=== PATIENT | female | born 2000 | race Caucasian/White ===

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

== ENCOUNTER 2019-03-03 10:46 | Emergency (ER) | payer BC ==
[2019-03-03 10:49] VITALS: O2SAT 99
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
[2019-03-03] MEDS ORDERED: MOTRIN 400 MG PO ONE (11:12)
[2019-03-03] MEDS ORDERED: MOTRIN 400 MG ONE (11:15)
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
[2019-03-03 12:21] VITALS: BP 116/83; PULSE 73
== END 2019-03-03 13:04 | disposition home or self-care (01) ==
LOC: ED 10:46
DX: S16.1XXA Strain of muscle, fascia and tendon at neck level, initial encounter (principal); S10.93XA Contusion of unspecified part of neck, initial encounter; V89.2XXA Person injured in unspecified motor-vehicle accident, traffic, initial encounter; Y92.411 Interstate highway as the place of occurrence of the external cause
CPT/HCPCS: 70450; 71046; 72125; 99284; A9270-GY

== ENCOUNTER 2022-07-04 13:01 | Emergency (ER) | payer BC ==
--- NOTE | 2022-07-04 13:04 | ERPHSYRPT ---
- History of Present Illness Time Seen by Provider: 07/04/22 13:03 Historian: patient Exam Limitations: no limitations Physician History: This is a 22-year-old white female patient of Dr. Wilkinson who presents to the emergency department today with substernal central chest discomfort. It is nonradiating. Patient states that she drank several beers and several shots beginning at 3 PM yesterday. This evening and again this morning she had several episodes of vomiting. There was some blood noted in her vomitus. She was also having some chest pain as described above. She has nausea at this time. She currently has no abdominal pain. She has no complaints of diarrhea. She has had no flulike symptoms other than the vomiting. She has no cardiac history. Timing/Duration: today Activities at Onset: other (Vomiting several times) Quality: tightness (Muscular and discomfort) Location: substernal, central Chest Pain Radiation: no radiation Severity of Pain-Max: mild Severity of Pain-Current: mild Modifying Factors: Improves With: nothing Associated Symptoms: nausea, vomiting, No cough Prior Chest Pain/Cardiac Workup: no prior chest pain, no prior cardiac workup Nitro Today/Relief: no nitro taken today Aspirin Treatment Today: no aspirin today Allergies/Adverse Reactions: gluten Allergy (Verified 07/04/22 13:09) Home Medications: Magnesium Oxide [Magnesium] 1 tab PO DAILY 07/04/22 [History] Hx Tetanus, Diphtheria Vaccination/Date Given: Yes Hx Influenza Vaccination/Date Given: No Hx Pneumococcal Vaccination/Date Given: No Travel Risk - International Travel Have you traveled outside of the country in past 3 weeks: No - Coronavirus Screening Are you exhibiting any of the following symptoms?: No Close contact with a COVID-19 positive Pt in past 14-21 Days: No - Review of Systems Constitutional: No Symptoms Eyes: No Symptoms Ears, Nose, & Throat: No Symptoms Respiratory: No Symptoms Cardiac: Chest Pain Abdominal/Gastrointestinal: Nausea, Vomiting, Hematemesis (Small flecks of blood after several episodes of vomiting), Appetite Changes, No Diarrhea Genitourinary Symptoms: No Symptoms Musculoskeletal: No Symptoms Skin: No Symptoms Neurological: No Symptoms Psychological: No Symptoms Endocrine: No Symptoms Hematologic/Lymphatic: No Symptoms Immunological/Allergic: No Symptoms All Other Systems: Reviewed and Negative - Past Medical History Pertinent Past Medical History: No Neurological History: No Pertinent History ENT History: No Pertinent History Cardiac History: No Pertinent History Respiratory History: No Pertinent History Endocrine Medical History: No Pertinent History Musculoskeletal History: No Pertinent History GI Medical History: No Pertinent History History: No Pertinent History Psycho-Social History: No Pertinent History Female Reproductive Disorders: No Pertinent History Other Medical History: gluten sensitivity - Past Surgical History Past Surgical History: No Neuro Surgical History: No Pertinent History Cardiac: No Pertinent History Respiratory: No Pertinent History Gastrointestinal: No Pertinent History Genitourinary: No Pertinent History Musculoskeletal: No Pertinent History Female Surgical History: No Pertinent History - Social History Smoking Status: Never smoker Exposure to second hand smoke: No Drug Use: none Patient Lives Alone: No - Nursing Vital Signs Nursing Vital Signs: Initial Vital Signs Temperature 98.1 F 07/04/22 13:17 Pulse Rate 93 H 07/04/22 13:17 Respiratory Rate 18 07/04/22 13:17 Blood Pressure 125/89 07/04/22 13:17 O2 Sat by Pulse Oximetry 100 07/04/22 13:17 Pain Scale Pain Intensity 4 - Physical Exam General Appearance: no apparent distress, alert, anxiety, thin Eye Exam: PERRL/EOMI, eyes nml inspection Ears, Nose, Throat Exam: normal ENT inspection, moist mucous membranes Neck Exam: normal inspection, non-tender, supple, full range of motion Respiratory Exam: normal breath sounds, chest tenderness (Mild muscular generalized), lungs clear, airway intact, No respiratory distress Cardiovascular Exam: regular rate/rhythm, normal heart sounds, normal peripheral pulses Gastrointestinal/Abdomen Exam: soft, normal bowel sounds, No tenderness Pelvic Exam: not done Rectal Exam: not done Back Exam: normal inspection Extremity Exam: normal inspection, normal range of motion, pelvis stable Neurologic Exam: alert, oriented x 3, cooperative, synthetic soil blocks pulper II-XII nml as tested, normal mood/affect, nml cerebellar function, nml station & gait, sensation nml Skin Exam: normal color, warm, dry Lymphatic Exam: No adenopathy SpO2 Interpretation: normal O2 Delivery: Room Air - Course Nursing assessment & vital signs reviewed: Yes EKG Interpreted by Me: RATE (84), Sinus Rhythm, NORMAL AXIS, NORMAL INTERVALS, NORMAL QRS, NORMAL ST-T, Other (No acute ischemic changes on today's twelve-lead EKG.) Ordered Tests: Active Orders 24 hr Category Date Time Status Clean Catch Urine Specimen STAT Care 07/04/22 13:24 Active EKG-ER Only STAT Care 07/04/22 13:24 Active IV Insertion STAT Care 07/04/22 13:24 Active AMYLASE Stat Lab 07/04/22 13:24 Completed CBC W DIFF Stat Lab 07/04/22 13:24 Completed CMP Stat Lab 07/04/22 13:24 Completed ETHYL ALCOHOL Stat Lab 07/04/22 13:24 Completed HCG QUALITATIVE, URINE Stat Lab 07/04/22 13:27 Completed LIPASE Stat Lab 07/04/22 13:24 Completed Lactic Acid Stat Lab 07/04/22 13:24 Completed MAG [MAGNESIUM] Stat Lab 07/04/22 13:24 Received TROPONIN Q4H Lab 07/04/22 17:30 Ordered TROPONIN Q4H Lab 07/04/22 21:30 Ordered TROPONIN Stat Lab 07/04/22 13:24 Completed UA W/RFX UR CULTURE Stat Lab 07/04/22 13:27 Completed Urine Triage Profile Stat Lab 07/04/22 13:27 Completed Medication Summary Generic Name Dose Route Start Last Admin Trade Name Freq PRN Reason Stop Dose Admin Sodium Chloride 1,000 mls @ 999 mls/hr 07/04/22 13:24 07/04/22 13:32 Sodium Chloride 0.9% 1000 Ml IV 07/04/22 14:24 999 mls/hr .Q1H1M STA Administration Sodium Chloride 1,000 mls @ 999 mls/hr 07/04/22 14:02 Sodium Chloride 0.9% 1000 Ml IV 07/04/22 15:02 .Q1H1M STA Discontinued Medications Generic Name Dose Route Start Last Admin Trade Name Freq PRN Reason Stop Dose Admin Sodium Chloride Confirm 07/04/22 13:30 Sodium Chloride 0.9% 1000 Ml Administered 07/04/22 13:31 Dose 1,000 mls @ ud .ROUTE .STK-MED ONE Ondansetron HCl 4 mg 07/04/22 13:24 07/04/22 13:34 Ondansetron Hcl 4 Mg/2 Ml Vial IV 07/04/22 13:25 4 mg STAT ONE Administration Ondansetron HCl Confirm 07/04/22 13:30 Ondansetron Hcl 4 Mg/2 Ml Vial Administered 07/04/22 13:31 Dose 4 mg .ROUTE .STK-MED ONE Pantoprazole Sodium 40 mg 07/04/22 13:24 07/04/22 13:35 Pantoprazole 40 Mg Vial IV 07/04/22 13:25 40 mg STAT ONE Administration Pantoprazole Sodium Confirm 07/04/22 13:30 Pantoprazole 40 Mg Vial Administered 07/04/22 13:31 Dose 40 mg IV .STK-MED ONE Lab/Rad Data: Laboratory Result Diagrams 07/04/22 13:24 07/04/22 13:24 Laboratory Results 07/04/22 07/04/22 07/04/22 Range/Units 13:27 13:27 13:27 WBC (4.0-10.5) x10^3/uL RBC (4.1-5.4) x10^6/uL Hgb (12.0-16.0) g/dL Hct (35-47) % MCV (78-100) fL MCH (26-32) pg MCHC (32-36) g/dL RDW (11.5-14.0) % Plt Count (150-450) x10^3/uL MPV (7.5-11.0) fL Gran % (36.0-66.0) % Immature Gran % (Auto) (0.00-0.4) % Nucleat RBC Rel Count (0.00-0.1) % Eos # (Auto) (0-0.5) x10^3/uL Immature Gran # (Auto) (0.00-0.03) x10^3u/L Absolute Lymphs (auto) (1.0-4.6) x10^3/uL Absolute Monos (auto) (0.0-1.3) x10^3/uL Absolute Nucleated RBC (0.00-0.01) x10^3u/L Lymphocytes % (24.0-44.0) % Monocytes % (0.0-12.0) % Eosinophils % (0.00-5.0) % Basophils % (0.0-0.4) % Absolute Granulocytes (1.4-6.9) x10^3/uL Basophils # (0-0.4) x10^3/uL Sodium (137-145) mmol/L Potassium (3.5-5.1) mmol/L Chloride (98-107) mmol/L Carbon Dioxide (22-30) mmol/L Anion Gap (5-15) MEQ/L BUN (7-17) mg/dL Creatinine (0.52-1.04) mg/dL Estimated GFR ML/MIN Glucose (74-106) mg/dL Lactic Acid (0.4-2.0) Calcium (8.4-10.2) mg/dL Total Bilirubin (0.2-1.3) mg/dL AST (14-36) U/L ALT (0-35) U/L Alkaline Phosphatase (38-126) U/L Troponin I (0.000-0.034) ng/mL Serum Total Protein (6.3-8.2) g/dL Albumin (3.5-5.0) g/dL Amylase (30-110) U/L Lipase (23-300) U/L Urine Color Yellow (Yellow) Urine Appearance Clear (Clear) Urine pH >=9.0 A (4.6-8.0) Ur Specific [place] 1.020 (1.005-1.030) Urine Protein 30 (Negative) Urine Glucose (UA) Negative (Negative) mg/dL Urine Ketones Negative (Negative) Urine Blood Negative (Negative) Urine Nitrite Negative (Negative) Urine Bilirubin Negative (Negative) Urine Urobilinogen 1.0 A (0.2) mg/dL Ur Leukocyte Esterase Negative (Negative) U Hyaline Cast (Auto) NONE SEEN (0-2) /LPF Urine Microscopic RBC 0-2 (0-5) /HPF Urine Microscopic WBC 0-2 (0-5) /HPF Ur Epithelial Cells Rare (None Seen) /HPF Urine Bacteria None Seen (None Seen) /HPF Urine Culture Reflexed NO (NO) Urine HCG, Qual NEGATIVE (NEGATIVE) Urine Opiates Level NEGATIVE (NEGATIVE) Ur Methadone NEGATIVE (NEGATIVE) Urine Barbiturates NEGATIVE (NEGATIVE) Ur Phencyclidine (PCP) NEGATIVE (NEGATIVE) Urine Amphetamine NEGATIVE (NEGATIVE) U Benzodiazepine Level NEGATIVE (NEGATIVE) Urine Cocaine NEGATIVE (NEGATIVE) Urine Marijuana (THC) NEGATIVE (NEGATIVE) Ethyl Alcohol (0-10) mg/dL 07/04/22 07/04/22 07/04/22 Range/Units 13:24 13:24 13:24 WBC 15.5 H (4.0-10.5) x10^3/uL RBC 4.98 (4.1-5.4) x10^6/uL Hgb 14.6 (12.0-16.0) g/dL Hct 44.3 (35-47) % MCV 89.0 (78-100) fL MCH 29.3 (26-32) pg MCHC 33.0 (32-36) g/dL RDW 13.0 (11.5-14.0) % Plt Count 319 (150-450) x10^3/uL MPV 10.8 (7.5-11.0) fL Gran % 84.7 H (36.0-66.0) % Immature Gran % (Auto) 0.4 (0.00-0.4) % Nucleat RBC Rel Count 0.0 (0.00-0.1) % Eos # (Auto) 0.02 (0-0.5) x10^3/uL Immature Gran # (Auto) 0.06 H (0.00-0.03) x10^3u/L Absolute Lymphs (auto) 1.50 (1.0-4.6) x10^3/uL Absolute Monos (auto) 0.72 (0.0-1.3) x10^3/uL Absolute Nucleated RBC 0.00 (0.00-0.01) x10^3u/L Lymphocytes % 9.7 L (24.0-44.0) % Monocytes % 4.6 (0.0-12.0) % Eosinophils % 0.1 (0.00-5.0) % Basophils % 0.5 (0.0-0.4) % Absolute Granulocytes 13.16 H (1.4-6.9) x10^3/uL Basophils # 0.07 (0-0.4) x10^3/uL Sodium 140 (137-145) mmol/L Potassium 3.9 (3.5-5.1) mmol/L Chloride 103 (98-107) mmol/L Carbon Dioxide 26 (22-30) mmol/L Anion Gap 14.6 (5-15) MEQ/L BUN 12 (7-17) mg/dL Creatinine 0.54 (0.52-1.04) mg/dL Estimated GFR > 60.0 ML/MIN Glucose 93 (74-106) mg/dL Lactic Acid 1.2 (0.4-2.0) Calcium 9.6 (8.4-10.2) mg/dL Total Bilirubin 0.70 (0.2-1.3) mg/dL AST 38 H (14-36) U/L ALT 25 (0-35) U/L Alkaline Phosphatase 110 (38-126) U/L Troponin I < 0.012 (0.000-0.034) ng/mL Serum Total Protein 8.8 H (6.3-8.2) g/dL Albumin 4.8 (3.5-5.0) g/dL Amylase 86 (30-110) U/L Lipase 78 (23-300) U/L Urine Color (Yellow) Urine Appearance (Clear) Urine pH (4.6-8.0) Ur Specific [place] (1.005-1.030) Urine Protein (Negative) Urine Glucose (UA) (Negative) mg/dL Urine Ketones (Negative) Urine Blood (Negative) Urine Nitrite (Negative) Urine Bilirubin (Negative) Urine Urobilinogen (0.2) mg/dL Ur Leukocyte Esterase (Negative) U Hyaline Cast (Auto) (0-2) /LPF Urine Microscopic RBC (0-5) /HPF Urine Microscopic WBC (0-5) /HPF Ur Epithelial Cells (None Seen) /HPF Urine Bacteria (None Seen) /HPF Urine Culture Reflexed (NO) Urine HCG, Qual (NEGATIVE) Urine Opiates Level (NEGATIVE) Ur Methadone (NEGATIVE) Urine Barbiturates (NEGATIVE) Ur Phencyclidine (PCP) (NEGATIVE) Urine Amphetamine (NEGATIVE) U Benzodiazepine Level (NEGATIVE) Urine Cocaine (NEGATIVE) Urine Marijuana (THC) (NEGATIVE) Ethyl Alcohol < 10 (0-10) mg/dL - Progress Progress: improved, re-examined Air Movement: good Progress Note: 07/04/22 14:09 This patient's medical issue is 1 of moderate complexity. The level of complexity and the work-up performed is based on review of the patient's past medical history, review of the patient's medication list, review of the patient's drug allergy list, history of present illness and physical findings on examination. Work-up includes a CBC, CMP, amylase, lipase, test, urinalysis, urine drug screen and magnesium level. In addition we performed a twelve-lead EKG and a troponin level. The patient's lab work results were reviewed by me. There is no evidence of any acute, emergent medical issues. The patient's symptoms is likely to the multiple vomiting episodes that she had between last night and this morning. Patient was given 2 L of intravenous normal saline, Zofran 4 mg, and Protonix 40 mg. Symptomatically, the patient has improved. When she has completed her second liter of normal saline, the patient will be discharged home with a prescription of Zofran ODT and Pepcid 20 mg. Blood Culture(s) Obtained: No Antibiotics given: No Counseled pt/family regarding: lab results, diagnosis, need for follow-up Medical Desision Making - Independent Historian Additional History obtained from: Mother (Provided independent additional history from mom) - Diagnostic Testing Diagnostic test were ordered, analyzed, and reviewed by me: Yes - Risk of complications The pt has a mod risk of morbidity or mortality based on: Need for prescription drug management - Departure Departure Disposition: Home Clinical Impression: Vomiting, Gastritis Condition: Stable Critical Care Time: No Referrals: MILTON WILKINSON MD [Primary Care Provider] - Follow up/PCP as directed Additional Instructions: Drink plenty of clear liquids before advancing your diet. Avoid fatty greasy spicy foods. Take your medication as prescribed. Follow-up with your primary care provider for further evaluation and management in the next 5 to 7 days. Prescriptions: Ondansetron ODT 4 MG [Zofran Odt 4 mg] 4 mg PO Q6H PRN PRN #10 tablet PRN Reason: Vomiting Famotidine 20 mg [Pepcid 20 MG] 20 mg PO DAILY #10 tablet
[2022-07-04 13:24] VITALS: O2SAT 100
[2022-07-04] MEDS ORDERED: Zofran 4 MG/2 ML VIAL IV ONE (13:24)
[2022-07-04] MEDS ORDERED: PROTONIX 40 MG IV IV ONE ×2 (13:24→13:30)
[2022-07-04] MEDS ORDERED: Sodium Chloride 0.9% 1000 ML 1,000 ML IV STA ×2 (13:24→14:02)
[2022-07-04] MEDS ORDERED: Zofran 4 MG/2 ML VIAL ONE (13:30)
[2022-07-04] MEDS ORDERED: Sodium Chloride 0.9% 1000 ML 1,000 ML ONE ×2 (13:30→14:26)
[2022-07-04 13:41] LABS: HCG URINE TEST NEGATIVE (NEGATIVE)
[2022-07-04 13:44] LABS: Absolute Neutrophil Ct (ANC) 13.16 x10^3/uL (1.4-6.9); BASOPHIL % 0.5 % (0.0-0.4); Basophil (Absolute #) 0.07 x10^3/uL (0-0.4); Eosinophil % 0.1 % (0.00-5.0); Eosinophil (Absolute #) 0.02 x10^3/uL (0-0.5); Hematocrit 44.3 % (35-47); Hemoglobin 14.6 g/dL (12.0-16.0); IMMATURE GRAN # 0.06 x10^3u/L (0.00-0.03); IMMATURE GRAN % 0.4 % (0.00-0.4); Lymphocytes % 9.7 % (24.0-44.0); Mean Corpuscular Hemoglobin 29.3 pg (26-32); Mean Platelet Volume 10.8 fL (7.5-11.0); Monocyte (Absolute #) 0.72 x10^3/uL (0.0-1.3); Monocytes % 4.6 % (0.0-12.0); Neutrophil % 84.7 % (36.0-66.0); Platelet Count 319 x10^3/uL (150-450); Red Blood Count 4.98 x10^6/uL (4.1-5.4); White Blood Count 15.5 x10^3/uL (4.0-10.5)
[2022-07-04 13:45] LABS: Appearance Clear (Clear); Bacteria None Seen /HPF (None Seen); Bilirubin Negative (Negative); Blood Negative (Negative); Epithelial Cells Rare /HPF (None Seen); Glucose, Urine Negative (Negative); Hyaline Casts NONE SEEN /LPF (0-2); Ketones Negative (Negative); Leukocyte Esterase Negative (Negative); Nitrite Negative (Negative); Ph >=9.0 (4.6-8.0); Protein,Urine Dip 30 (Negative); RBC 0-2 /HPF (0-5); WBC 0-2 /HPF (0-5)
[2022-07-04 13:49] LABS: ALBUMIN 4.8 g/dL (3.5-5.0); ALKALINE PHOSPHATASE 110 U/L (38-126); AMYLASE 86 U/L (30-110); ANION GAP 14.6 MEQ/L (5-15); BLOOD UREA NITROGEN 12 mg/dL (7-17); CHLORIDE 103 mmol/L (98-107); Calcium 9.6 mg/dL (8.4-10.2); Carbon Dioxide 26 mmol/L (22-30); Creatinine 1 0.54 mg/dL (0.52-1.04); EST GLOMERULAR FILTRATION RATE > 60.0 ML/MIN; ETHYL ALCOHOL < 10 mg/dL (0-10); Glucose 93 mg/dL (74-106); LIPASE 78 U/L (23-300); Potassium 3.9 mmol/L (3.5-5.1); SGOT/AST 38 U/L (14-36); SGPT/ALT 25 U/L (0-35); SODIUM 140 mmol/L (137-145); Total Protein 8.8 g/dL (6.3-8.2)
[2022-07-04 13:49] LABS: ADD URINE CULTURE? NO (NO)
[2022-07-04 13:58] LABS: Amphetamine,Urine NEGATIVE (NEGATIVE); Barbiturate,Urine NEGATIVE (NEGATIVE); Benzodiazepine,Urine NEGATIVE (NEGATIVE); Methadone,Urine NEGATIVE (NEGATIVE); Opiate,Urine NEGATIVE (NEGATIVE); PCP,Urine NEGATIVE (NEGATIVE); THC,Urine NEGATIVE (NEGATIVE)
[2022-07-04 14:01] LABS: Cocaine,Urine NEGATIVE (NEGATIVE)
[2022-07-04 14:06] LABS: TROPONIN < 0.012 ng/mL (0.000-0.034)
[2022-07-04 15:10] VITALS: BP 106/52; PULSE 84
== END 2022-07-04 15:45 | disposition home or self-care (01) ==
LOC: ED 13:01
DX: K29.70 Gastritis, unspecified, without bleeding (principal); R11.2 Nausea with vomiting, unspecified; R07.9 Chest pain, unspecified
CPT/HCPCS: 36000; 36415; 80053; 80307; 81001; 81025; 82077; 82150; 83605; 83690; 83735; 84484; 85025; 93005; 96360; 96361; 96374; 96375; 99284; J2405